=== PATIENT | male | born 1980 | race Two or more races ===

== ENCOUNTER 2024-10-21 17:11 | Emergency (ER) | payer MEDICAID, SELFPAY ==
[2024-10-21 17:14] VITALS: BMI 32.8
[2024-10-21 17:52] VITALS: BP 115/81; PULSE 68; RESP 16; TEMP 37.2; O2SAT 98
--- NOTE | 2024-10-21 17:54 | PD.EDRME ---
Rapid Medical Screening Exam [facility] Arrival date/time: 10/21/24 17:11 44-year-old male with a history of cannabinoid hyperemesis syndrome, presents to the emergency room with a chief complaint of nausea and vomiting x 1 week. Patient states every time he eats something he cannot hold it down. Patient is also complaining of heartburn. I have greeted and performed a focused initial assessment of this patient. A comprehensive ED assessment and evaluation of the patient, analysis of all test results, and completion of the medical decision making process will be conducted by additional ED providers. Chief Complaint: Nausea/Vomiting/Diarrhea Vital signs: Vital Signs Temperature 98.9 F 10/21/24 17:52 Pulse Rate 68 10/21/24 17:52 Respiratory Rate 16 10/21/24 17:52 Blood Pressure 115/81 10/21/24 17:52 Pulse Oximetry (%) 98 10/21/24 17:52 Oxygen Delivery Method Room Air 10/21/24 17:52 Vital signs reviewed by provider: Yes
[2024-10-21] MEDS: METOCLOPRAMIDE 5 MG TABLET 10 MG PO (18:22)
[2024-10-21] MEDS: MG HYD/AL HYD/SIME (Maalox Reg) SUSP 30 ML UDC PO (18:24)
[2024-10-21 18:39] LABS: Basophils % (Auto) 1 % (0-2.5); Eosinophils # (Auto) 0.1 Thou/mm3 (0.0-0.5); Eosinophils % (Auto) 1 % (0-10); Hematocrit 44.1 % (41.0-53.0); Hemoglobin 14.8 g/dL (13.5-16.0); Immature Granulocytes % (Auto) 0 % (0-0); Immature Granulocytes Auto 0.02 Thou/mm3 (0.00-0.00); Lymphocytes # (Auto) 1.6 Thou/mm3 (1.0-4.8); Lymphocytes % (Auto) 24 % (10-50); Mean Corpuscular HGB Conc 33.6 g/dl (31.0-37.0); Mean Corpuscular Hemoglobin 29.2 pg (25.0-35.0); Mean Corpuscular Volume 87 fL (80-100); Monocytes # (Auto) 0.6 Thou/mm3 (0.0-0.8); Monocytes % (Auto) 9 % (0-12); Neutrophils # (Auto) 4.3 Thou/mm3 (1.8-7.7); Neutrophils % (Auto) 65 % (37-80); Nucleated Red Blood Cell % 0 /100 WBC (0); Platelet Count 233 Thou/mm3 (140-440); RDW Standard Deviation 40.2 fL (35.1-43.9); Red Blood Count 5.07 Miln/mm3 (4.50-5.90); White Blood Count 6.6 Thou/mm3 (3.8-10.6)
[2024-10-21 18:58] LABS: Alanine Aminotransferase 36 U/L (10-49); Albumin, Serum 4.1 gm/dL (3.5-5.0); Albumin/Globulin Ratio 1.7 (1.2-2.2); Alkaline Phosphatase 60 U/L (46-116); Anion Gap 9 (7-16); Aspartate Amino Transferase 36 U/L (0-34); BUN/Creatinine Ratio 11 Ratio (12-20); Bilirubin,Total 1.6 mg/dL (0.3-1.2); Blood Urea Nitrogen 10 mg/dL (9-23); Calcium 9.6 mg/dL (8.3-10.6); Calcium (Corrected) 9.6 mg/dL (8.5-10.1); Carbon Dioxide 25.8 mMol/L (20.0-31.0); Chloride 109 mMol/L (98-107); Creatinine (Component) 0.9 mg/dL (0.6-1.3); Estimated Creatinine Clearance 108.7 mL/min (>60); Globulin 2.4 gm/dL (2.3-3.5); Glucose 98 mg/dL (74-106); Lipase 34 U/L (12-53); Osmolality,Calculated 285 (275-295); Potassium 4.3 mMol/L (3.4-5.1); Sodium 144 mMol/L (136-145); Total Protein 6.5 gm/dL (5.7-8.2); eGFR > 60 See Note
--- NOTE | 2024-10-21 22:16 | EDNOTE_ITS ---
Nausea/Vomit./Diarrhea-RME/HPI General Chief complaint: Nausea/Vomiting/Diarrhea Stated complaint: N/V X1 WEEK Time Seen by Provider: 10/21/24 21:53 Arrival date/time: 10/21/24 17:11 RME / HPI RME / HPI Narrative: 10/21/24 17:11 44-year-old male with a history of cannabinoid hyperemesis syndrome, presents to the emergency room with a chief complaint of nausea and vomiting x 1 week. Patient states every time he eats something he cannot hold it down. Patient is also complaining of heartburn. I have greeted and performed a focused initial assessment of this patient. A comprehensive ED assessment and evaluation of the patient, analysis of all test results, and completion of the medical decision making process will be conducted by additional ED providers. --------- This section includes all my notes and documentations, including HPI, PE, and ED course. Abhi Seay MD HPI: 44yo male with no significant past medical history presents to the ED for complaints of N/V x 5 days. Patient states he's had persistent N/V for the last 5 days, reporting I am very dehydrated and need IV fluids . He reports associated generalized body cramps when he coughs, diarrhea, and nonspecific abdominal pain. He denies any fever, chills or any other associated symptoms. Denies any previous abdominal surgeries. No other complaints reported. ROS: All negative except as documented in HPI. Physical Exam: General: Alert and oriented. No acute distress when remaining still. Eyes: Conjunctivae and lids clear. ENT: No nasal congestion. Neck: Supple. Heart: RRR. Lungs: No respiratory distress. Good air movement. No rhonchi, wheezing, rales. Abdomen: Soft and nontender. Legs: No clubbing, cyanosis, edema. Skin: Warm and dry. Neuro: Alert and oriented X 3. I reviewed all diagnostic test results. Blood tests and urine tests unremarkable. At this point, diagnoses include gastroenteritis. Treatment here from me included NS, Toradol, Zofran. Significant improvement noted. Recommended supportive care. Based on my best medical judgment, made decision no further evaluation or treatment indicated at this time. Patient understands and agrees to the discharge instructions customized and printed, see below. Discharge Instructions from Dr. Seay: 1. After evaluation, you have stomach flu. See attached handout on gastroenteritis. 2. This is caused by virus germs. And we do not have good medications to kill the virus germs. But your immune system will fight it off. 3. Your job is to stay hydrated. Zofran for nausea/vomiting. Increase oral fluid and maintain clear urine. If dark or yellow, increase oral fluid. 4. Do not take any medications to stop your diarrhea. But try to replenish the fluid and electrolytes you are losing. 5. Some good choices are water (but not only water because it will cause electrolyte abnormalities), sports drinks like Gatorade (with less sugar content), coconut water, chicken stock, and other fluid with electrolytes (like Pedialyte). 6. See your private doctor on if not completely better. 7. Seek immediate medical care with worsening or with any concerns. Abhi Seay MD Related Data Previous Rx's ?Medication ?Instructions ?Recorded metoclopramide HCl 10 mg tablet 10 mg PO Q6H PRN nause a and 03/03/22 (Reglan) vomiting #14 tabs pantoprazole 40 mg tablet,delayed 40 mg PO QDAY #30 ta bs 03/03/22 release (Protonix) ondansetron 4 mg disintegrating 4 mg PO Q8H PRN nausea and 03/08/22 tablet vomiting #14 tabs doxycycline monohydrate 100 mg 100 mg PO BID #14 caps 07/21/22 capsule metronidazole 500 mg tablet 500 mg PO BID #14 tabs 12/06 metoclopramide HCl 10 mg tablet 10 mg PO Q6H PRN nause a and 04/30/24 (Reglan) vomiting #14 tabs ondansetron 4 mg disintegrating 4 mg PO Q8H PRN nausea and 05/01/24 tablet vomiting #10 tabs ondansetron 4 mg disintegrating 4 mg PO TID PRN nausea and 10/21/24 tablet vomiting 30 days #10 tabs Allergies Allergy/AdvReac Type Severity Reaction Status Date / Time No Known Allergies Allergy Verified 10/21/24 17:12 Review of Systems Review of Systems Systems Reviewed: All systems reviewed, normal except as documented Past Medical History Past Medical History CARDIAC: Negative Cardiac Disorders or Congestive Heart Failure RESPIRATORY: Negative Chronic Obstructive Pulmonary Disease (COPD) or Asthma GASTROINTESTINAL: Positive Gastrointestinal Bleed GENITOURINARY: Negative Renal Disease ENDOCRINE: Negative Diabetes Mellitus Type 1 or Diabetes Mellitus Type 2 HEMATOLOGIC: Negative Sickle Cell Disease Social History SMOKING STATUS: Current every day smoker SUBSTANCE USE: marijuana ED Exam Narrative Physical exam: As noted in HPI. Course Quality Measures none Orders Category Date Time Status CBC Stat Lab 10/21/24 18:11 Completed CMP [Comprehensive Metabolic Panel] Stat Lab 10/21/24 18:11 Completed Drug Screen,Urine Stat Lab 10/21/24 17:53 Ordered Lipase Stat Lab 10/21/24 18:11 Completed UA, C/S IF [Urinalysis, C/S if Indicated] Stat Lab 10/21/24 17:53 Ordered Ketorolac Inj [Toradol Inj] Med 10/21/24 22:14 Discontinued 30 mg IVP X1 ONE Metoclopramide [Reglan] Med 10/21/24 17:53 Discontinued 10 mg PO X1 ONE Ondansetron Inj [Zofran Inj] Med 10/21/24 22:15 Discontinued 4 mg IV X1 ONE Sodium Chloride 0.9% 1000 ml [Ns] 1,000 ml Med 10/21/24 22:13 Active IV 999 mls/hr mg Hyd/Al Hyd/Wale Susp [Maalox Susp] Med 10/21/24 17:53 Discontinued 30 ml PO X1 ONE Vital Signs Vital signs: Vital Signs Temperature 98.9 F 10/21/24 17:52 Pulse Rate 68 10/21/24 17:52 Respiratory Rate 16 10/21/24 17:52 Blood Pressure 115/81 10/21/24 17:52 Pulse Oximetry (%) 98 10/21/24 17:52 Oxygen Delivery Method Room Air 10/21/24 17:52 Nausea/Vomiting/Diarrhea MDM Narrative [facility] Narrative:: Scribe Attestation: 10/21/24 Brittanie Lopez am scribing for and in the presence of Dr. Seay. Patient data External records reviewed:: [facility] previous records (Per chart review, patient was seen here on 05/01/24 for N/V.) Clinical information provided by:: patient Social determinants that could affect healthcare access:: substance use (history of marijuana use) Patient has the following chronic illnesses:: none How is presenting disease/condition affected by chronic disease/condition?: no chronic disease Evaluation data The following diagnostics were reviewed and interpreted by me:: lab results Lab and/or radiology exams considered but not ordered:: none Interpretation Summary: Gastroenteritis Medications / Prescriptions Medications / Prescriptions considered but not ordered:: none Medication administrations:: Medication Administration History Sodium Chloride (Ns) 1,000 mls @ 999 mls/hr IV .Q1H1M ONE Stop: 10/21/24 23:13 Last Admin: 10/21/24 22:23 Dose: 999 mls/hr Documented By: JOSE Discontinued Medications Al Hydrox/Mg Hydrox/Simethicone (Mg Hyd/Al Hyd/Wale (Maalox Reg) Susp 30 Ml Udc) 30 ml PO X1 ONE Stop: 10/21/24 17:54 Last Admin: 10/21/24 18:24 Dose: 30 ml Documented By: JOSE Ketorolac Tromethamine (Ketorolac Inj 30 Mg/Ml Vial) 30 mg IVP X1 ONE Stop: 10/21/24 22:15 Last Admin: 10/21/24 22:35 Dose: 30 mg Documented By: KIP Metoclopramide HCl (Metoclopramide 5 Mg Tablet) 10 mg PO X1 ONE Stop: 10/21/24 17:54 Last Admin: 10/21/24 18:22 Dose: 10 mg Documented By: JOSE Ondansetron HCl (Ondansetron Inj 2 Mg/Ml Inj 2 Ml) 4 mg IV X1 ONE; Protocol Stop: 10/21/24 22:16 Last Admin: 10/21/24 22:35 Dose: 4 mg Documented By: KIP NS, Toradol, Zofran from dc. Consultations Consultation(s) initiated? (list below): No Diagnosis Nausea Differential Diagnosis: traveler's diarrhea, food poisoning, gastroenteritis, clostridium difficile infection, drug-induced nausea and vomiting and dehydration Most likely diagnosis given after review of the tests above:: Gastroenteritis Admission Indicated Admission indicated?: not indicated Explain why admission is indicated or not indicated:: With significant improvement, there was no indication for admission. Admission Request Was there a request for admission?: No Disposition Plan Disposition Plan: Discharge Discharge Attestation Discharge Attestation: The patient and all family members were given an opportunity to ask questions and understood the discharge instructions. Discharge instructions specifically effects, indications for sooner follow up or return to the emergency department, and the expected course of current diagnosis. Patient condition: Stable Discharge Plan Plan Patient Disposition: HOME (Self Care) Prescriptions/Referrals Prescriptions/Med Rec: New ondansetron 4 mg tablet,disintegrating 4 mg PO TID PRN (Reason: nausea and vomiting) 30 Days Qty: 10 0RF No Action pantoprazole [Protonix] 40 mg tablet,delayed release (DR/EC) 40 mg PO QDAY Qty: 30 0RF metoclopramide HCl [Reglan] 10 mg tablet 10 mg PO Q6H PRN (Reason: nausea and vomiting) Qty: 14 0RF ondansetron 4 mg tablet,disintegrating 4 mg PO Q8H PRN (Reason: nausea and vomiting) Qty: 14 0RF doxycycline monohydrate 100 mg capsule 100 mg PO BID Qty: 14 0RF metronidazole 500 mg tablet 500 mg PO BID Qty: 14 0RF ondansetron 4 mg tablet,disintegrating 4 mg PO Q8H PRN (Reason: nausea and vomiting) Qty: 10 0RF metoclopramide HCl [Reglan] 10 mg tablet 10 mg PO Q6H PRN (Reason: nausea and vomiting) Qty: 14 0RF Referrals: No Primary/Family,Physician [Primary Care Provider] - In 1 week Problem List Clinical Impression: Gastroenteritis Patient/Caregiver Discharge Instructions Discharge Activity: activity as tolerated Education Materials: ED Gastroenteritis, Viral (Adult) Additional Instructions: Discharge Instructions from Dr. Seay: 1. After evaluation, you have stomach flu.? See attached handout on gastroenteritis. 2. This is caused by virus germs.? And we do not have good medications to kill the virus germs.? But your immune system will fight it off. 3. Your job is to stay hydrated.? Zofran for nausea/vomiting.? Increase oral fluid and maintain clear urine.? If dark or yellow, increase oral fluid. 4. Do not take any medications to stop your diarrhea.? But try to replenish the fluid and electrolytes you are losing. 5. Some good choices are water (but not only water because it will cause electrolyte abnormalities), sports drinks like Gatorade (with less sugar content), coconut water, chicken stock, and other fluid with electrolytes (like Pedialyte). 6. See your private doctor on if not completely better. 7. Seek immediate medical care with worsening or with any concerns. Print Language: Guatemalan Stand Alone Forms: Kathy Award Info., Work/School Release, Patient Portal Info Letter
[2024-10-21] MEDS: SODIUM CHLORIDE 0.9% 1000 ML 1,000 ML 999 ML IV (22:23)
[2024-10-21] MEDS: KETOROLAC INJ 30 MG/ML VIAL IVP (22:35)
[2024-10-21] MEDS: ONDANSETRON INJ 2 MG/ML INJ 2 ML 4 MG IV (22:35)
[2024-10-21] MEDS: ONDANSETRON ODT 4 MG TABRAP PO (23:29)
[2024-10-21] MEDS: METOCLOPRAMIDE LIQD 10 MG/10 ML UDC PO (23:29)
[2024-10-22 00:15] VITALS: BP 159/104; PULSE 60; RESP 18; TEMP 36.8; O2SAT 99
== END 2024-10-22 00:24 | disposition home or self-care (01) ==
PROVIDERS: Nurse Practitioner Family; Emergency Provider Emergency Medicine
DX: K52.9 Noninfective gastroenteritis and colitis, unspecified (principal); R12 Heartburn
CPT/HCPCS: 36415; 80053; 80307; 81001; 83690; 85025; 99284; J1885; J2405; J7030; Q0162; A9270

== ENCOUNTER 2024-10-22 00:48 | Emergency (ER) | payer MEDICAID, SELFPAY ==
[2024-10-22 00:50] VITALS: PULSE 89; RESP 19; O2SAT 99
[2024-10-22 00:52] VITALS: BMI 23.1
--- NOTE | 2024-10-22 02:23 | PC.NURSE ---
STAFF CALLED PATIENT IN THE LOBBY AND OUTSIDE NO ANSWER RECEIVED.
--- NOTE | 2024-10-22 03:03 | PC.LAC ---
CALLED PATIENT IN THE LOBBY AND OUTSIDE, NO ANSWER RECEIVED.
--- NOTE | 2024-10-22 03:07 | PC.NURSE ---
STAFF CALLED PATIENT IN THE LOBBY AND OUTSIDE, NO ANSWER RECEIVED.
--- NOTE | 2024-10-22 03:13 | PD.EDADDENDU ---
Emergency Room Addendum Addendum Narrative: When I looked for the patient to start my evaluation, I was told the patient eloped. Abhi Seay MD
--- NOTE | 2024-10-22 03:30 | PC.NURSE ---
CALLED PATIENT IN THE LOBBY AND OUTSIDE, NO ANSWER RECIEVED.
== END 2024-10-22 03:59 | disposition left against medical advice (07) ==
LOC: SERX 04:05
PROVIDERS: Emergency Provider Emergency Medicine
DX: Z53.21 Procedure and treatment not carried out due to patient leaving prior to being seen by health care provider (principal)

== ENCOUNTER 2024-10-23 10:50 | Observation (INO) | payer MEDICAID, SELFPAY ==
[2024-10-23] VITALS (11 sets, daily range): BP systolic 118–165; BP diastolic 69–104; PULSE 42–76; RESP 16–97; TEMP 36.8–37.4; O2SAT 95–98; BMI 29.8
--- NOTE | 2024-10-23 11:11 | PC.NURSE ---
Patient to er via ems with c/o abd. pain, n/vomiting dark emesis and abd. pain with diarrhea x days, patient came from [facility] clinic in [place], currently patient states he feels very weak h/o anemia and GI bleeding, skin warm dry and pink, HR SB on the CM, chart up to be seen be er provider, will await orders.
[2024-10-23 11:45] LABS: Basophils % (Auto) 0 % (0-2.5); Eosinophils % (Auto) 0 % (0-10); Hematocrit 42.4 % (41.0-53.0); Immature Granulocytes % (Auto) 0 % (0-0); Immature Granulocytes Auto 0.03 Thou/mm3 (0.00-0.00); Lymphocytes # (Auto) 1.4 Thou/mm3 (1.0-4.8); Lymphocytes % (Auto) 12 % (10-50); Mean Corpuscular HGB Conc 35.4 g/dl (31.0-37.0); Mean Corpuscular Hemoglobin 29.5 pg (25.0-35.0); Mean Corpuscular Volume 84 fL (80-100); Monocytes # (Auto) 1.2 Thou/mm3 (0.0-0.8); Monocytes % (Auto) 10 % (0-12); Neutrophils % (Auto) 77 % (37-80); Nucleated Red Blood Cell % 0 /100 WBC (0); Platelet Count 288 Thou/mm3 (140-440); RDW Standard Deviation 38.4 fL (35.1-43.9); Red Blood Count 5.08 Miln/mm3 (4.50-5.90); White Blood Count 11.6 Thou/mm3 (3.8-10.6)
--- NOTE | 2024-10-23 11:59 | PD.EDNV ---
Nausea/Vomit./Diarrhea-RME/HPI General Chief complaint: Nausea/Vomiting/Diarrhea Stated complaint: NAUSEA AND VOMITING Time Seen by Provider: 10/23/24 11:11 Arrival date/time: 10/23/24 10:50 RME / HPI RME / HPI Narrative: DR. MURO MAIN ED EVALUATION: 44 year old male presents to the Emergency Department [facility] with complaints of nausea and vomiting onset 5 days. He states has been unable to keep anything down. Associated symptoms include generalized weakness and epigastric pain. States he has history of ulcer and is concerned for GI bleeding. One episode of loose stools. States he was previously admitted with similar symptoms. Related Data Previous Rx's ?Medication ?Instructions ?Recorded fluconazole 200 mg tablet 200 mg PO QDAY Esophageal 10/25/24 Candidiasis 21 days #21 tabs ondansetron HCl 4 mg tablet 4 mg PO Q8H PRN nausea and 10/25/24 vomiting 10 days #90 tabs pantoprazole 40 mg tablet,delayed 40 mg PO BID 30 days #60 tabs 10/25/24 release (Protonix) Allergies Allergy/AdvReac Type Severity Reaction Status Date / Time cayenne Allergy Verified 10/25/24 13:18 paprika Allergy Verified 10/25/24 13:18 Review of Systems Review of Systems Systems Reviewed: All systems reviewed, normal except as documented Past Medical History Past Medical History GASTROINTESTINAL: Positive Gastrointestinal Bleed HEMATOLOGIC: Positive Anemia Social History SMOKING STATUS: Current every day smoker SUBSTANCE USE: marijuana ALCOHOL: Never ED Exam Narrative Physical exam: GENERAL APPEARANCE: alert and oriented x 4, well-developed, well-nourished, no acute distress VITALS: All vitals were reviewed and the pulse ox is 97% on room air, which is normal according to my interpretation. HEENT: Normocephalic, atraumatic; pupils equal, round, reactive to light; EOMI; mucous membranes pink, dry; oropharynx clear NECK: Supple LUNGS: CTABL; no wheezes, no rales, no rhonchi HEART: Regular rate, regular rhythm; normal S1, S2; no murmurs ABDOMEN: non distended; normal BS; soft, no tenderness, no guarding, no rebound; no masses, no organomegaly, no hernia BACK: no CVA tenderness EXTREMITIES: atraumatic; no edema NEUROLOGIC: awake; alert and oriented x4; cranial nerves II-XII grossly intact; no focal sensory or motor deficits PSYCHIATRIC: appropriate mood and affect SKIN: warm, dry, normal color; no rashes Course Quality Measures none Orders Category Date Time Status Admit to Inpatient Status Routine Admission 10/23/24 16:29 Active Patient Condition Routine Admission 10/23/24 16:29 Ordered Activity as Tolerated Routine Care 10/23/24 16:30 Ordered Teleradiologist Q4H START 00 Care 10/23/24 11:13 Completed Notify provider NEEDED Care 10/23/24 16:29 Completed Sequential Compression Device QSHIFT Care 10/23/24 16:34 Completed Consult to Gastroenterology Stat Cons 10/23/24 16:39 Ordered CBC AM DRAW Lab 10/24/24 04:00 Completed CBC AM DRAW Lab 10/25/24 05:18 Completed CBC Stat Lab 10/23/24 11:15 Completed Comprehensive Metabolic Panel AM DRAW Lab 10/24/24 04:00 Completed Comprehensive Metabolic Panel AM DRAW Lab 10/25/24 05:18 Completed Comprehensive Metabolic Panel Stat Lab 10/23/24 11:15 Completed Drug Screen,Urine Stat Lab 10/23/24 13:42 Completed Lipase Stat Lab 10/23/24 11:15 Completed Magnesium AM DRAW Lab 10/24/24 04:00 Completed Magnesium Stat Lab 10/23/24 11:15 Completed Phosphorous AM DRAW Lab 10/24/24 04:00 Completed UA, C/S IF [Urinalysis, C/S if Indicated] Stat Lab 10/23/24 13:42 Completed Acetaminophen Supp [Tylenol Supp] Med 10/23/24 16:29 Discontinued 650 mg AL Q6HR PRN DiphenhydrAMINE INJ [Benadryl Inj] Med 10/23/24 16:34 Discontinued 25 mg IV Q4HR PRN Haloperidol Lactate [Haldol Inj] Med 10/23/24 15:10 Discontinued 5 mg IM X1 ONE Morphine Inj Med 10/23/24 16:42 Discontinued 1 mg IVP Q6HR PRN Ondansetron Inj [Zofran Inj] Med 10/23/24 15:17 Discontinued 4 mg IV X1 ONE Ondansetron Odt [Zofran Odt] Med 10/23/24 14:57 Discontinued 4 mg PO X1 ONE Pantoprazole Inj [Protonix Inj] Med 10/23/24 21:00 Discontinued 40 mg IVP BID Pantoprazole Inj [Protonix Inj] Med 10/23/24 15:17 Discontinued 40 mg IVP X1 ONE Sodium Chloride 0.9% 1000 ml [Ns] 1,000 ml Med 10/23/24 16:30 Discontinued IV 75 mls/hr Sodium Chloride 0.9% 1000 ml [Ns] 1,000 ml Med 10/23/24 15:17 Discontinued IV 999 mls/hr mg Hyd/Al Hyd/Wale Susp [Maalox Susp] Med 10/23/24 16:41 Discontinued 30 ml PO X1 PRN Code Status Routine Oth 10/23/24 16:29 Completed Oxygen Delivery PRN RT 10/23/24 16:29 Completed Reevaluation(s) Reevaluation #1: Patient is still vomiting will order medications. Time: 15:14 Vital Signs Vital signs: Vital Signs Temperature 99.3 F 10/23/24 10:59 Pulse Rate 44 L 10/23/24 10:59 Respiratory Rate 16 10/23/24 10:59 Blood Pressure 156/96 H 10/23/24 10:59 Pulse Oximetry (%) 98 10/23/24 10:59 Oxygen Delivery Method Room Air 10/23/24 10:59 Nausea/Vomiting/Diarrhea MDM Narrative MDM Narrative:: IYue am scribing for and in the presence of Dr. Muro. Patient data External records reviewed:: EMS form Clinical information provided by:: patient and EMS Social determinants that could affect healthcare access:: none Patient has the following chronic illnesses:: Ulcers, anemia. How is presenting disease/condition affected by chronic disease/condition?: exacerbated by Evaluation data The following diagnostics were reviewed and interpreted by me:: lab results Lab and/or radiology exams considered but not ordered:: none Interpretation Summary: Polysubstance abuse history, today tested positive for marijuana. Medications / Prescriptions Medications / Prescriptions considered but not ordered:: none Medication administrations:: Medication Administration History Discontinued Medications Acetaminophen (Acetaminophen Supp 650 Mg Supp) 650 mg AL Q6HR PRN; Protocol PRN Reason: Fever > 100.3 or pain Stop: 11/22/24 16:28 Al Hydrox/Mg Hydrox/Simethicone (Mg Hyd/Al Hyd/Wale (Maalox Reg) Susp 30 Ml Udc) 30 ml PO X1 PRN; Protocol PRN Reason: stomach pain Stop: 11/22/24 16:40 Benzocaine (Benzocaine 20% (Hurricaine) Jenner 1 Dose) Confirm Administered Dose 1 dose TOP .STK-MED ONE Stop: 10/24/24 18:14 Capsaicin (Capsaicin Cr 60 Gm Tube) 0 gm TOP TID [facility] Stop: 11/22/24 21:59 Last Admin: 10/24/24 05:37 Dose: Not Given Documented By: VITALIY Non-Admin Reason: Other, see note Comments: Medication not available, MD Aware. Admin: 10/23/24 21:21 Dose: Not Given Documented By: VITALIY Non-Admin Reason: Other, see note Comments: Medication not available, MD aware. Diphenhydramine HCl (Diphenhydramine Inj 50 Mg/Ml Vial) 25 mg IV Q4HR PRN PRN Reason: NAUSEA OR VOMITING Stop: 11/22/24 16:33 Diphenhydramine HCl (Diphenhydramine Inj 50 Mg/Ml Vial) Confirm Administered Dose 50 mg .ROUTE .STK-MED ONE Stop: 10/24/24 18:15 Diphenhydramine HCl (Diphenhydramine Inj 50 Mg/Ml Vial) 25 mg IV PRNMRX1 PRN PRN Reason: MODERATE SEDATION Stop: 10/24/24 20:14 Fentanyl Citrate (Fentanyl Cit Inj 50 Mcg/Ml Amp 2ml) Confirm Administered Dose 100 mcg .ROUTE .STK-MED ONE Stop: 10/24/24 18:14 Fentanyl Citrate (Fentanyl Cit Inj 50 Mcg/Ml Amp 2ml) 50 mcg IV Q2M PRN PRN Reason: MODERATE SEDATION Stop: 10/24/24 20:14 Haloperidol Lactate (Haloperidol Lact Inj 5 Mg/Ml Vial) 5 mg IM X1 ONE Stop: 10/23/24 15:11 Last Admin: 10/23/24 15:51 Dose: 5 mg Documented By: ERIKA Sodium Chloride (Ns) 1,000 mls @ 999 mls/hr IV .Q1H1M ONE Stop: 10/23/24 16:17 Last Infusion: 10/23/24 16:50 Dose: Infused Documented By: Admin: 10/23/24 15:48 Dose: 999 mls/hr Documented By: ERIKA Sodium Chloride (Ns) 1,000 mls @ 75 mls/hr IV .[id number] [facility] Stop: 11/22/24 16:29 Last Admin: 10/25/24 11:03 Dose: 75 mls/hr Documented By: Infusion: 10/25/24 09:22 Dose: Infused Documented By: Admin: 10/24/24 20:02 Dose: 75 mls/hr Documented By: Infusion: 10/24/24 18:10 Dose: Infused Documented By: Admin: 10/24/24 04:50 Dose: 75 mls/hr Documented By: Infusion: 10/24/24 04:50 Dose: Infused Documented By: Admin: 10/23/24 17:23 Dose: 75 mls/hr Documented By: ERIKA Fluconazole (Diflucan/Ns Ivpb) 400 mg in 200 mls @ 100 mls/hr IV QDAY@2100 [facility] Stop: 10/31/24 18:35 Last Admin: 10/24/24 20:03 Dose: 100 mls/hr Documented By: VITALIY Meperidine HCl (Meperidine Inj 50 Mg/Ml Vial) Confirm Administered Dose 50 mg .ROUTE .STK-MED ONE Stop: 10/24/24 18:14 Meperidine HCl (Meperidine Inj 50 Mg/Ml Vial) 50 mg IV Q2M PRN PRN Reason: Moderate Sedation Stop: 10/24/24 20:14 Midazolam HCl (Midazolam Inj 1 Mg/Ml Vial 2 Ml) Confirm Administered Dose 6 mg .ROUTE .STK-MED ONE Stop: 10/24/24 18:15 Midazolam HCl (Midazolam Inj 1 Mg/Ml Vial 2 Ml) 2 mg IV Q2M PRN PRN Reason: Moderate Sedation Stop: 10/24/24 20:14 Morphine Sulfate (Morphine Sulf Inj 10 Mg/Ml Vial) 1 mg IVP Q6HR PRN PRN Reason: abdominal pain 4-6 Nystatin (Nystatin Susp 5 Ml Udc) 5 ml PO TID [facility] Stop: 10/31/24 21:59 Last Admin: 10/25/24 13:22 Dose: 5 ml Documented By: Admin: 10/25/24 05:06 Dose: 5 ml Documented By: Admin: 10/24/24 21:06 Dose: 5 ml Documented By: VITALIY Ondansetron HCl (Ondansetron Odt 4 Mg Tabrap) 4 mg PO X1 ONE; Protocol Stop: 10/23/24 14:58 Last Admin: 10/23/24 15:50 Dose: 4 mg Documented By: ERIKA Ondansetron HCl (Ondansetron Inj 2 Mg/Ml Inj 2 Ml) 4 mg IV X1 ONE; Protocol Stop: 10/23/24 15:18 Last Admin: 10/23/24 15:52 Dose: 4 mg Documented By: ERIKA Ondansetron HCl (Ondansetron Inj 2 Mg/Ml Inj 2 Ml) 4 mg IV Q6HR PRN; Protocol PRN Reason: NAUSEA OR VOMITING Stop: 11/22/24 20:18 Last Admin: 10/25/24 08:06 Dose: 4 mg Documented By: Admin: 10/24/24 04:48 Dose: 4 mg Documented By: Admin: 10/23/24 20:36 Dose: 4 mg Documented By: VITALIY Pantoprazole Sodium (Pantoprazole Inj 40 Mg Vial) 40 mg IVP X1 ONE Stop: 10/23/24 15:18 Last Admin: 10/23/24 15:52 Dose: 40 mg Documented By: ERIKA Pantoprazole Sodium (Pantoprazole Inj 40 Mg Vial) 40 mg IVP BID [place] Stop: 11/22/24 20:59 Last Admin: 10/25/24 08:06 Dose: 40 mg Documented By: Admin: 10/24/24 21:06 Dose: 40 mg Documented By: Admin: 10/24/24 09:15 Dose: 40 mg Documented By: Admin: 10/23/24 20:36 Dose: 40 mg Documented By: VITALIY see above if any Consultations Consultation(s) initiated? (list below): Yes Consultation #1 (Physician, Specialty, Details): Discussed test HPI, PMHx, lab, radiology results and/or management with hospitalist Dr. Jones. Will admit for further evaluation and management. Accepts patient for admission. Time: 16:20 Diagnosis Nausea Differential Diagnosis: drug-induced nausea and vomiting, dehydration and other (cannabinoid hyperemesis syndrome (CHS)) Most likely diagnosis given after review of the tests above:: GI bleed Cannabinoid hyperemesis syndrome Marijuana abuse Admission Indicated Admission indicated?: indicated Admission Request Was there a request for admission?: Yes Admission Attestation Admission request attestation: Discussed case with [] from Hospitalist service regarding admission. Discussed patients ED course, exam findings, labs, and radiology results. The Hospitalist [agrees,declines] to accept the patient for admission. Disposition Plan Disposition Plan: Admit Discharge Plan Plan Patient Disposition: Admit Acute Care w/in Hospital Patient condition on transfer: Stable Problem List Clinical Impression: GI bleed, Cannabinoid hyperemesis syndrome, Marijuana abuse
[2024-10-23 12:12] LABS: Alanine Aminotransferase 28 U/L (10-49); Albumin, Serum 4.2 gm/dL (3.5-5.0); Albumin/Globulin Ratio 1.8 (1.2-2.2); Alkaline Phosphatase 60 U/L (46-116); Anion Gap 11 (7-16); Aspartate Amino Transferase 23 U/L (0-34); BUN/Creatinine Ratio 14 Ratio (12-20); Bilirubin,Total 1.5 mg/dL (0.3-1.2); Blood Urea Nitrogen 11 mg/dL (9-23); Calcium 9.3 mg/dL (8.3-10.6); Calcium (Corrected) 9.3 mg/dL (8.5-10.1); Chloride 107 mMol/L (98-107); Creatinine (Component) 0.8 mg/dL (0.6-1.3); Globulin 2.3 gm/dL (2.3-3.5); Glucose 121 mg/dL (74-106); Lipase 42 U/L (12-53); Osmolality,Calculated 283 (275-295); Potassium 3.4 mMol/L (3.4-5.1); Sodium 142 mMol/L (136-145); Total Protein 6.5 gm/dL (5.7-8.2); eGFR > 60 See Note
[2024-10-23 13:51] LABS: Collection Type, Urine Clean Catch; Squamous Epithelial Cell,Urine 0 /hpf (0-5)
[2024-10-23 14:14] LABS: Amphetamine/Methamp Scrn,U Negative (Negative); Barbiturate Screen,Urine Negative (Negative); Benzodiazepines Screen,Urine Negative (Negative); Benzoylecgonine Screen, Ur Negative (Negative); Fentanyl Screen,Urine Negative (Negative); Opiate Screen,Urine Negative (Negative); THC Screen,Urine Positive (Negative)
[2024-10-23 14:26] LABS: Amorphous Crystals,Urine Present (Absent); Bacteria,Urine Rare; Bilirubin,Urine Negative (Negative); Blood,Urine Negative (Negative); Budding Yeast,Urine Present; Color,Urine Yellow (Lt Yel-Yel); Culture Indicated,Urine Not Indicated; Glucose, Urine Negative (Negative); Ketones,Urine 3+ (Negative); Leukocyte Esterase,Urine Negative (Negative); Nitrite,Urine Negative (Negative); Protein,Urine Trace (Neg - Trace); RBC,Urine 6 /hpf (0-3); Urobilinogen,Urine Negative mg/dL (0.0-1.0); WBC,Urine 1 /hpf (0-5)
[2024-10-23 14:28] LABS: Clarity,Urine Cloudy (Clear/Hazy)
[2024-10-23] MEDS: SODIUM CHLORIDE 0.9% 1000 ML 1,000 ML 999 ML IV (15:48)
[2024-10-23] MEDS: ONDANSETRON ODT 4 MG TABRAP PO (15:50)
[2024-10-23] MEDS: HALOPERIDOL LACT INJ 5 MG/ML VIAL IM (15:51)
[2024-10-23] MEDS: ONDANSETRON INJ 2 MG/ML INJ 2 ML 4 MG IV ×2 (15:52→20:36)
[2024-10-23] MEDS: PANTOPRAZOLE INJ 40 MG VIAL IVP ×2 (15:52→20:36)
--- NOTE | 2024-10-23 15:58 | PC.NURSE ---
patient c/o that provider not listening and we are not helping him,informed patient provider ordered medicaton to help with his symptoms, however patient states i need to be admitted, I already know it's not gonna work encouraged patientto take medication ordered by provider to get relief of symptoms, Patient agrees to medication administration, however, during administration patient continues to say i already know it's not gonna work informed patient he can refuse if he would like, patient states no go ahead also informed patient that I will notify provider and he could speak with her, patient states i don't want to talk to that stupid drValeria Muro made aware and states she called the hospitalists to come to er to evalutate pt.
--- NOTE | 2024-10-23 16:05 | PC.NURSE ---
Patient standing at bedside, asking for water yelling out the drValeria is so unprofessional patient encouraged to lie back onto the [facility], do to medicaiton administration, informed patient I will ask provider if patient can have water.
--- NOTE | 2024-10-23 16:14 | PC.LAC ---
Hospitalist at bedside.
--- NOTE | 2024-10-23 16:45 | PD.RESHP ---
Documentation for date of: 10/23/24 [facility] History of Present Illness Chief complaint: nausea and vomiting History of present illness: Luther Diallo is 44 yr male with PMH of THC use, cannabinoid hyperemesis syndrome, gastric ulcers (?) who presented to the ED due to abdominal pain, nausea, decreased appetite, vomiting since past one week. He had previously presented to the ED on 10/21 with similar symptoms. Patient has been experiencing abdominal pain 8/ with nothing improving the pain. Stated that he has a very sensitive stomach and ate a jalapeno which started exacerbation of the symptoms. Endorses decreased appetite, weakness, shortness of breath while talking. He denies any recent NSAID use. No diarrhea, no blood in the stool. Patient has had 4?5 episodes of emesis in the past few days with some blood. He has never undergone any GI workup. In ED vitals stable, labs unremarkable. UA positive for ketones. Tox positive for THC. GI Dr. Claros was consulted. Patient admitted for management of cyclical vomiting episodes and workup of possible GI bleed. PMH: as noted above PSH: none FamHx: mother has diabetes, gastric ulcers Social: smokes <10 cig/day, drinks alcohol occasionally, denies illicit drug use, smokes marijuana regularly. Meds: Patient denies taking any medications outpatient Allergies: NKDA Review of Systems Review of Systems Systems Reviewed: All systems reviewed, normal except as documented Exam Vital Signs Temp Pulse Resp BP Pulse Ox O2 Del Method 98.3 F 57 L 19 138/75 H 97 Room Air 10/23/24 15:53 10/23/24 15:53 10/23/24 15:53 10/23/24 15:53 10/23/24 15:53 10/23/24 15:53 Narrative Exam General: Middle-aged male alert and oriented x3. In distress, cooperative HEENT: NCAT, No JVD noted. Mucosa moist. Pupils are equal and reactive to light bilaterally Cardiovascular: Normal S1 and S2. Regular rate and rhythm. Respiratory: Lungs are clear to auscultation bilaterally. No wheezing or crackles heard. Abdomen: Soft, some tenderness to palpation, not distended, normal bowel sounds. Skin: Warm to touch, dry, no rashes noted Musculoskeletal: No gross injuries. Able to move all 4 extremities. No pitting edema Neuro: Alert and oriented x3. No focal neuro deficits. Psych: Normal affect and mood Results: Labs 10/24/24 04:00 10/24/24 04:00 Labs: Short CBC 10/23/24 Range/Units 11:15 WBC 11.6 H D (3.8-10.6) Thou/mm3 Hgb 15.0 (13.5-16.0) g/dL Hct 42.4 (41.0-53.0) % Plt Count 288 D (140-440) Thou/mm3 BMP 10/23/24 11:15 Sodium 142 Potassium 3.4 D Chloride 107 Carbon Dioxide 24.0 BUN 11 Creatinine 0.8 Glucose 121 H Calcium 9.3 Liver Function 10/23/24 Range/Units 11:15 Total Bilirubin 1.5 H (0.3-1.2) mg/dL AST 23 (0-34) U/L ALT 28 (10-49) U/L Alkaline Phosphatase 60 (46-116) U/L Albumin 4.2 (3.5-5.0) gm/dL Urine 10/23/24 Range/Units 13:42 Urine Color Yellow (Lt Yel-Yel) Urine Clarity Cloudy A (Clear/Hazy) Urine pH 7.0 (5.0-7.0) Ur Specific [place] 1.020 (1.001-1.035) Urine Protein Trace (Neg - Trace) Urine Glucose (UA) Negative (Negative) Quality Measures Quality Measures none Medications Home Medications and Allergies Allergies Allergy/AdvReac Type Severity Reaction Status Date / Time No Known Allergies Allergy Verified 10/22/24 00:53 Visit Medications Acetaminophen (Acetaminophen Supp 650 Mg Supp) 650 mg [place] Q6HR PRN PRN Reason: Fever > 100.3 or pain Stop: 11/22/24 16:28 Al Hydrox/Mg Hydrox/Simethicone (Mg Hyd/Al Hyd/Wale (Maalox Reg) Susp 30 Ml Udc) 30 ml PO X1 PRN PRN Reason: stomach pain Stop: 11/22/24 16:40 Diphenhydramine HCl (Diphenhydramine Inj 50 Mg/Ml Vial) 25 mg IV Q4HR PRN PRN Reason: NAUSEA OR VOMITING Stop: 11/22/24 16:33 Sodium Chloride (Ns) 1,000 mls @ 75 mls/hr IV .[id number] [place] Stop: 11/22/24 16:29 Morphine Sulfate (Morphine Sulf Inj 10 Mg/Ml Vial) 1 mg IVP Q6HR PRN PRN Reason: abdominal pain Pantoprazole Sodium (Pantoprazole Inj 40 Mg Vial) 40 mg IVP BID [facility] Stop: 11/22/24 20:59 Discontinued Medications Haloperidol Lactate (Haloperidol Lact Inj 5 Mg/Ml Vial) 5 mg IM X1 ONE Stop: 10/23/24 15:11 Last Admin: 10/23/24 15:51 Dose: 5 mg Sodium Chloride (Ns) 1,000 mls @ 999 mls/hr IV .Q1H1M ONE Stop: 10/23/24 16:17 Last Admin: 10/23/24 15:48 Dose: 999 mls/hr Ondansetron HCl (Ondansetron Odt 4 Mg Tabrap) 4 mg PO X1 ONE; Protocol Stop: 10/23/24 14:58 Last Admin: 10/23/24 15:50 Dose: 4 mg Ondansetron HCl (Ondansetron Inj 2 Mg/Ml Inj 2 Ml) 4 mg IV X1 ONE; Protocol Stop: 10/23/24 15:18 Last Admin: 10/23/24 15:52 Dose: 4 mg Pantoprazole Sodium (Pantoprazole Inj 40 Mg Vial) 40 mg IVP X1 ONE Stop: 10/23/24 15:18 Last Admin: 10/23/24 15:52 Dose: 40 mg Assessment & Plan Plan Luther Diallo is 44 yr male with PMH of THC use, cannabinoid hyperemesis syndrome, gastric ulcers (?) who presented to the ED due to abdominal pain, nausea, decreased appetite, vomiting since past one week. Patient has had 4?5 episodes of emesis in the past few days with some blood. He has never undergone any GI workup. GI Dr. Claros was consulted. Patient admitted for management of cyclical vomiting episodes and workup of possible GI bleed. # Workup upper GI bleed #Cyclical vomiting #Cannabinoid hyperemesis syndrome #Hx marijuana use Patient endorses nausea and vomiting since past week. Vomit is dark in color. Possible esophageal tear from vomiting vs gastric ulcer bleeding. ?GI Dr. Claros consulted ? Clear liquid diet ?Diphenhydramine 25 mg IV q4hr PRN nausea ?Maalox for pain ? Morphine 1 mg IV q6hr PRN for pain ?Zofran 4 mg IV ?Pantoprazole 40 mg BID ?Maintenance fluids NS ?Avoid NSAIDs Health maintenance: Dispo: med surg, GI consult Diet: clear liquid diet DVT prophylaxis: SCDs CODE STATUS: Full code The patient's management plan was discussed with my attending physician Dr. Jones. Zahraa Ji, PGY-1 Attending Provider Attestation/Addendum I reviewed labs, imaging, EKG, home medications and prior available records. Face to face evaluation was performed by me. I have personally examined the patient and discussed assessment and plan with the IM team. I reviewed the resident note and agree with the plan with exceptions as below. Intractable nausea and vomiting Epigastric pain Upper GI bleed Marijuana abuse Tobacco use Start IV hydration Start IV Protonix Management of nausea/vomiting as needed Management of pain as needed Monitor H&H Consulted GI Counseled the patient regarding the importance of avoiding marijuana and tobacco Counseled the patient regarding the importance of drinking alcohol within limits
[2024-10-23] MEDS: SODIUM CHLORIDE 0.9% 1000 ML 1,000 ML 75 ML IV (17:23)
--- NOTE | 2024-10-23 19:42 | PC.NURSE ---
Report called to Keena RN
--- NOTE | 2024-10-23 23:11 | PD.IMCONS ---
HPI Data of Consult Requesting Physician: Stan Jones MD Primary Care Provider: Physician No Primary/Family Consult Narrative Reason for consult: Hematemesis, nausea vomiting History of present illness: 44 years old male comes in for evaluation to the emergency room with nausea vomiting and 3-4 episodes of hematemesis She does have occasional drink does smoke marijuana Patient was subsequently admitted cc:: cc: Stan Jones MD Review of Systems Review of Systems Systems Reviewed: All systems reviewed, normal except as documented Meds Home Medications and Allergies Allergies Allergy/AdvReac Type Severity Reaction Status Date / Time No Known Allergies Allergy Verified 10/22/24 00:53 Exam Vital Signs Temp Pulse Resp BP Pulse Ox O2 Del Method 98.8 F 45 L 17 152/93 H 97 Room Air 10/23/24 20:23 10/23/24 22:46 10/23/24 20:23 10/23/24 20:23 10/23/24 20:23 10/23/24 20:23 Constitutional Comments: Alert oriented Routine Respiratory Exam Comments: Normal to auscultation Routine Abdominal Exam Comments: Soft nontender Results Labs 10/23/24 11:15 10/23/24 11:15 Labs: Short CBC 10/23/24 Range/Units 11:15 WBC 11.6 H D (3.8-10.6) Thou/mm3 Hgb 15.0 (13.5-16.0) g/dL Hct 42.4 (41.0-53.0) % Plt Count 288 D (140-440) Thou/mm3 BMP 10/23/24 11:15 Sodium 142 Potassium 3.4 D Chloride 107 Carbon Dioxide 24.0 BUN 11 Creatinine 0.8 Glucose 121 H Calcium 9.3 Liver Function 10/23/24 Range/Units 11:15 Total Bilirubin 1.5 H (0.3-1.2) mg/dL AST 23 (0-34) U/L ALT 28 (10-49) U/L Alkaline Phosphatase 60 (46-116) U/L Albumin 4.2 (3.5-5.0) gm/dL Urine 10/23/24 Range/Units 13:42 Urine Color Yellow (Lt Yel-Yel) Urine Clarity Cloudy A (Clear/Hazy) Urine pH 7.0 (5.0-7.0) Ur Specific [place] 1.020 (1.001-1.035) Urine Protein Trace (Neg - Trace) Urine Glucose (UA) Negative (Negative) Assessment and Plan Additional Assessment & Plan Additional Plan: Nausea vomiting Hematemesis Epigastric abdominal pain Plan Consent obtained for fiberoptic esophagogastroduodenoscopy with possible biopsy possible therapeutic intervention under intravenous moderate sedation scheduled for tomorrow N.p.o. 11 AM tomorrow except p.o. meds IV Protonix Advised complete abstinence from marijuana Will follow the patient Thank you very much for the opportunity to participate in care of this patient
[2024-10-24] VITALS (23 sets, daily range): BP systolic 99–155; BP diastolic 61–94; PULSE 12–102; RESP 13–96; TEMP 36–36.6; O2SAT 94–97
[2024-10-24] MEDS: ONDANSETRON INJ 2 MG/ML INJ 2 ML 4 MG IV (04:48)
[2024-10-24] MEDS: SODIUM CHLORIDE 0.9% 1000 ML 1,000 ML 75 ML IV ×2 (04:50→20:02)
[2024-10-24 05:21] LABS: Basophils % (Auto) 0 % (0-2.5); Eosinophils % (Auto) 0 % (0-10); Hematocrit 41.8 % (41.0-53.0); Hemoglobin 14.2 g/dL (13.5-16.0); Immature Granulocytes % (Auto) 0 % (0-0); Immature Granulocytes Auto 0.02 Thou/mm3 (0.00-0.00); Lymphocytes # (Auto) 1.5 Thou/mm3 (1.0-4.8); Lymphocytes % (Auto) 15 % (10-50); Mean Corpuscular Hemoglobin 28.7 pg (25.0-35.0); Mean Corpuscular Volume 85 fL (80-100); Monocytes # (Auto) 1.1 Thou/mm3 (0.0-0.8); Monocytes % (Auto) 11 % (0-12); Neutrophils # (Auto) 7.6 Thou/mm3 (1.8-7.7); Neutrophils % (Auto) 74 % (37-80); Nucleated Red Blood Cell % 0 /100 WBC (0); Platelet Count 277 Thou/mm3 (140-440); RDW Standard Deviation 38.6 fL (35.1-43.9); Red Blood Count 4.94 Miln/mm3 (4.50-5.90); White Blood Count 10.2 Thou/mm3 (3.8-10.6)
[2024-10-24 05:48] LABS: Alanine Aminotransferase 21 U/L (10-49); Albumin, Serum 3.8 gm/dL (3.5-5.0); Albumin/Globulin Ratio 1.8 (1.2-2.2); Alkaline Phosphatase 56 U/L (46-116); Anion Gap 10 (7-16); Aspartate Amino Transferase 19 U/L (0-34); BUN/Creatinine Ratio 11 Ratio (12-20); Bilirubin,Total 1.5 mg/dL (0.3-1.2); Blood Urea Nitrogen 10 mg/dL (9-23); Calcium 8.7 mg/dL (8.3-10.6); Calcium (Corrected) 8.9 mg/dL (8.5-10.1); Carbon Dioxide 24.3 mMol/L (20.0-31.0); Chloride 107 mMol/L (98-107); Creatinine (Component) 0.9 mg/dL (0.6-1.3); Estimated Creatinine Clearance 110.7 mL/min (>60); Globulin 2.1 gm/dL (2.3-3.5); Glucose 106 mg/dL (74-106); Magnesium 1.8 mg/dL (1.6-2.6); Osmolality,Calculated 280 (275-295); Phosphorous 2.9 mg/dL (2.4-5.1); Potassium 3.5 mMol/L (3.4-5.1); Sodium 141 mMol/L (136-145); Total Protein 5.9 gm/dL (5.7-8.2); eGFR > 60 See Note
[2024-10-24] MEDS: PANTOPRAZOLE INJ 40 MG VIAL IVP ×2 (09:15→21:06)
--- NOTE | 2024-10-24 11:11 | ESPR_ITS ---
Documentation for date of: 10/24/24 Subjective Subjective Interval history: Patient examined at bedside. Overnight, he was bradycardic with rate 45-50 but remained asymptomatic, comfortable in bed. Patient is disengaged, minimally answering questions. Last vomiting episode was yesterday in ED. Has not had BM since admission. States that pain is improving. EGD is pending for evaluation of possible upper GI bleed. Hb 14--stable. Exam Vital Signs Temp Pulse Resp BP Pulse Ox O2 Del Method 97.7 F 63 18 144/78 H 95 Room Air 10/24/24 07:52 10/24/24 07:52 10/24/24 07:52 10/24/24 07:52 10/24/24 07:52 10/24/24 07:52 Narrative Exam General: Middle-aged male alert and oriented x3. HEENT: NCAT, No JVD noted. Mucosa moist. Pupils are equal and reactive to light bilaterally Cardiovascular: Normal S1 and S2. Regular rate and rhythm. Respiratory: Lungs are clear to auscultation bilaterally. No wheezing or crackles heard. Abdomen: Soft, some tenderness to palpation, not distended, normal bowel sounds. Skin: Warm to touch, dry, no rashes noted Musculoskeletal: No gross injuries. Able to move all 4 extremities. No pitting edema Neuro: Alert and oriented x3. No focal neuro deficits. Psych: flat affect. Objective Labs 10/24/24 04:00 10/24/24 04:00 Labs: Laboratory Results - last 24 hr 10/23/24 10/23/24 10/24/24 11:15 13:42 04:00 WBC 11.6 H D 10.2 RBC 5.08 4.94 Hgb 15.0 14.2 Hct 42.4 41.8 MCV 84 85 MCH 29.5 28.7 MCHC 35.4 34.0 RDW Std Deviation 38.4 38.6 Plt Count 288 D 277 Neut % (Auto) 77 74 Lymph % (Auto) 12 15 [place] % (Auto) 10 11 Eos % (Auto) 0 0 Baso % (Auto) 0 0 Neut # (Auto) 9.0 H 7.6 Lymph # (Auto) 1.4 1.5 [place] # (Auto) 1.2 H 1.1 H Eos # (Auto) 0.0 0.0 Baso # (Auto) 0.0 0.0 Immature Gran # (Auto) 0.03 H 0.02 H Absolute Nucleated RBC 0.00 0.00 Immature Gran % 0 0 Nucleated RBC % 0 0 Sodium 142 141 Potassium 3.4 D 3.5 Chloride 107 107 Carbon Dioxide 24.0 24.3 Anion Gap 11 10 BUN 11 10 Creatinine 0.8 0.9 Estim Creat Clear Calc 121.0 110.7 eGFR > 60 > 60 BUN/Creatinine Ratio 14 11 L Glucose 121 H 106 Calculated Osmolality 283 280 Calcium 9.3 8.7 Corrected Calcium 9.3 8.9 Phosphorus 2.9 Magnesium 2.0 1.8 Total Bilirubin 1.5 H 1.5 H AST 23 19 ALT 28 21 Alkaline Phosphatase 60 56 Total Protein 6.5 5.9 Albumin 4.2 3.8 Globulin 2.3 2.1 L Albumin/Globulin Ratio 1.8 1.8 Lipase 42 D Ur Collection Type Clean Catch Urine Color Yellow Urine Clarity Cloudy A Urine pH 7.0 Ur Specific [place] 1.020 Urine Protein Trace Urine Glucose (UA) Negative Urine Ketones 3+ A Urine Blood Negative Urine Nitrite Negative Urine Bilirubin Negative Urine Urobilinogen (Auto) Negative Ur Leukocyte Esterase Negative Urine RBC 6 H Urine WBC 1 Ur Squamous Epith Cells 0 Amorphous Crystals Present A Urine Bacteria Rare Urine Yeast (Budding) Present A Ur Culture Indicated? Not Indicated Urine Opiates Screen Negative Urine Fentanyl Screen Negative Ur Barbiturates Screen Negative U Amphetamin/Meth Scrn Negative U Benzodiazepines Scrn Negative U Cocaine Metab Screen Negative U Marijuana (THC) Screen Positive A Quality Measures Quality Measures none Assessment & Plan Assessment Current Active Medications: Generic Name Dose Route Start Last Admin Trade Name Freq PRN Reason Stop Dose Admin Acetaminophen 650 mg 10/23/24 16:29 Acetaminophen Supp 650 Mg Supp SD 11/22/24 16:28 Q6HR PRN Fever > 100.3 or pain Protocol Al Hydrox/Mg Hydrox/Simethicone 30 ml 10/23/24 16:41 Mg Hyd/Al Hyd/Wale (Maalox Reg) Susp 30 Ml Udc PO 11/22/24 16:40 X1 PRN stomach pain Diphenhydramine HCl 25 mg 10/23/24 16:34 Diphenhydramine Inj 50 Mg/Ml Vial IV 11/22/24 16:33 Q4HR PRN NAUSEA OR VOMITING Sodium Chloride 1,000 mls @ 75 mls/hr 10/23/24 16:30 10/24/24 04:50 Ns IV 11/22/24 16:29 75 mls/hr .[id number] [place] Administration Morphine Sulfate 1 mg 10/23/24 16:42 Morphine Sulf Inj 10 Mg/Ml Vial IVP Q6HR PRN abdominal pain 4-6 Ondansetron HCl 4 mg 10/23/24 20:19 10/24/24 04:48 Ondansetron Inj 2 Mg/Ml Inj 2 Ml IV 11/22/24 20:18 4 mg Q6HR PRN Administration NAUSEA OR VOMITING Protocol Pantoprazole Sodium 40 mg 10/23/24 21:00 10/23/24 20:36 Pantoprazole Inj 40 Mg Vial IVP 11/22/24 20:59 40 mg BID [place] Administration Plan Luther Diallo is 44 yr male with PMH of THC use, cannabinoid hyperemesis syndrome, gastric ulcers (?) who presented to the ED due to abdominal pain, nausea, decreased appetite, vomiting since past one week. Patient has had 4?5 episodes of emesis in the past few days with some blood. He has never undergone any GI workup. GI Dr. Claros was consulted. Patient admitted for management of cyclical vomiting episodes and workup of possible GI bleed. # Workup upper GI bleed #Cyclical vomiting #Cannabinoid hyperemesis syndrome #Hx marijuana use Patient endorses nausea and vomiting since past week. Vomit is dark in color. Possible esophageal tear from vomiting vs gastric ulcer bleeding. ?GI Dr. Claros consulted ? Clear liquid diet ?Diphenhydramine 25 mg IV q4hr PRN nausea ?Maalox for pain ? Morphine 1 mg IV q6hr PRN for pain ?Zofran 4 mg IV ?Pantoprazole 40 mg BID ?Maintenance fluids NS ?Avoid NSAIDs -EGD pending -patient needs to refrain from smoking marijuana. Health maintenance: Dispo: med surg, GI consult Diet: clear liquid diet DVT prophylaxis: SCDs CODE STATUS: Full code The patient's management plan was discussed with my attending physician Dr. Jones. Zahraa Ji, PGY-1 Attending Provider Attestation/Addendum I reviewed labs, imaging, EKG, home medications and prior available records. Face to face evaluation was performed by me. I have personally examined the patient and discussed assessment and plan with the IM team. I reviewed the resident note and agree with the plan with exceptions as below. Intractable nausea and vomiting Epigastric pain Upper GI bleed Marijuana abuse Tobacco use Continue IV hydration Continue IV Protonix Management of nausea/vomiting as needed Management of pain as needed Monitor H&H: Stable Consulted GI: Plan for EGD Counseled the patient regarding the importance of avoiding marijuana and tobacco Counseled the patient regarding the importance of drinking alcohol within limits
--- NOTE | 2024-10-24 15:47 | PC.SS ---
SS met with patient regarding his d/c plan.? Pt is alert/oriented.? Pt was admitted for Upper GI Bleed.? Pt confirmed demographic and contact information is correct on facesheet.? Pt resides alone.? Pt ambulates independently without assistance or DME.? Pt is ok with all ADLs.? Patient?s pharmacy of choice is [facility] in [place].? Pt named his , Joanne Magaña medical decision maker if he is unable.? Patient?s choice is to return home upon d/c.? Pt states he has an advance directive at home.? Pt states he followed up with PCP on . D/C plan:? Return home Next of Kin:? Joanne Coreas, , phone# [phone] PCP:? [facility] in [place] Address:? Correct on facesheet
--- NOTE | 2024-10-24 18:11 | PC.NURSE ---
Called pt's , Joanne, informed her that pt has left to have his EGD completed
--- NOTE | 2024-10-24 18:42 | SUR.PHASEI ---
Pt. arrived to recovery via gurney, eyes closed, responds to verbal commands, VSS, no c/o pain or nausea at this time, pt. allowed to sleep. Report received from Letty SIMON.
--- NOTE | 2024-10-24 19:11 | SUR.PHASEI ---
Called and gave report on pt. s/p procedure to Keena RN on M?S unit.
--- NOTE | 2024-10-24 19:16 | SUR.PHASEI ---
Pt. transferred to room 379 via gurney by staff, VSS, no c/o pain or nausea at this time, IV flushed and patentKeena RN assumed care of pt.
[2024-10-24] MEDS: FLUCONAZOLE/NS 400 MG IVPB 400 MG/200 ML BAG 100 MG IV (20:03)
[2024-10-24] MEDS: NYSTATIN SUSP 5 ML UDC PO (21:06)
[2024-10-25] VITALS (8 sets, daily range): BP systolic 119–128; BP diastolic 64–85; PULSE 51–72; RESP 16–96; TEMP 36.1–37.6; O2SAT 96–100
[2024-10-25] MEDS: NYSTATIN SUSP 5 ML UDC PO ×2 (05:06→13:22)
[2024-10-25 05:33] LABS: Basophils % (Auto) 0 % (0-2.5); Eosinophils # (Auto) 0.1 Thou/mm3 (0.0-0.5); Eosinophils % (Auto) 1 % (0-10); Hematocrit 40.5 % (41.0-53.0); Hemoglobin 13.8 g/dL (13.5-16.0); Immature Granulocytes % (Auto) 0 % (0-0); Immature Granulocytes Auto 0.01 Thou/mm3 (0.00-0.00); Lymphocytes % (Auto) 40 % (10-50); Mean Corpuscular HGB Conc 34.1 g/dl (31.0-37.0); Mean Corpuscular Hemoglobin 28.9 pg (25.0-35.0); Mean Corpuscular Volume 85 fL (80-100); Monocytes # (Auto) 0.8 Thou/mm3 (0.0-0.8); Monocytes % (Auto) 11 % (0-12); Neutrophils # (Auto) 3.6 Thou/mm3 (1.8-7.7); Neutrophils % (Auto) 48 % (37-80); Nucleated Red Blood Cell % 0 /100 WBC (0); Platelet Count 244 Thou/mm3 (140-440); RDW Standard Deviation 38.5 fL (35.1-43.9); Red Blood Count 4.78 Miln/mm3 (4.50-5.90); White Blood Count 7.5 Thou/mm3 (3.8-10.6)
[2024-10-25 05:57] LABS: Alanine Aminotransferase 17 U/L (10-49); Albumin, Serum 3.4 gm/dL (3.5-5.0); Albumin/Globulin Ratio 1.7 (1.2-2.2); Alkaline Phosphatase 49 U/L (46-116); Anion Gap 8 (7-16); Aspartate Amino Transferase 17 U/L (0-34); BUN/Creatinine Ratio 10 Ratio (12-20); Bilirubin,Total 1.7 mg/dL (0.3-1.2); Blood Urea Nitrogen 10 mg/dL (9-23); Calcium (Corrected) 9.5 mg/dL (8.5-10.1); Carbon Dioxide 23.8 mMol/L (20.0-31.0); Chloride 109 mMol/L (98-107); Estimated Creatinine Clearance 99.7 mL/min (>60); Glucose 92 mg/dL (74-106); Osmolality,Calculated 280 (275-295); Potassium 3.7 mMol/L (3.4-5.1); Sodium 141 mMol/L (136-145); Total Protein 5.4 gm/dL (5.7-8.2); eGFR > 60 See Note
[2024-10-25] MEDS: ONDANSETRON INJ 2 MG/ML INJ 2 ML 4 MG IV (08:06)
[2024-10-25] MEDS: PANTOPRAZOLE INJ 40 MG VIAL IVP (08:06)
[2024-10-25 10:35] LABS: Hepatitis A Antibody IgM Non Reactive (Non React); Hepatitis B Core Antibody IgM Non Reactive (Non React); Hepatitis B Surface Antigen Non Reactive (Non React); Hepatitis C Antibody Non Reactive (Non React)
--- NOTE | 2024-10-25 10:40 | PC.SS ---
Follow up note: Dr Claros is consulting. EGD yesterday. Advance diet.
--- NOTE | 2024-10-25 10:41 | PC.SS ---
Addendum entered by Donna Sue 10/25/24 15:38: SS spoke to pt about following up at [facility] with Dr. Lees on November 01, 2024 at 1pm. Pt is agreeable. SS provided pt with [facility] with walk in time. Original Note: Pt will return home upon dc.
[2024-10-25] MEDS: SODIUM CHLORIDE 0.9% 1000 ML 1,000 ML 75 ML IV (11:03)
--- NOTE | 2024-10-25 11:26 | PD.RESDS ---
Planned Discharge Date 10/25/24 DS: Providers Provider Date of admission: 10/23/24 16:44 Primary care physician: Physician No Primary/Family Admitting Provider: Stan Jones MD Attending Provider on Admission: Stan Jones MD Consults: 10/23/24 16:39 Consult to Gastroenterology Stat Comment: Consulting Provider: Brock Claros Attending Provider on DC: Stan Jones MD Discharging Provider: Stan Jones MD Anticipated date of discharge: 10/25/24 DS: Diagnosis Problem List Completed Was Problem List Reviewed/Reconciled?: Yes Hospital Course Hospital Course Hospital course: Hospital course: Mr. Diallo is a 44-year-old male with past medical history of THC use, cyclical vomiting syndrome and gastric ulcers who presented to [facility] emergency department on 10/23/2024 with a chief complaint of abdominal pain nausea and decreased appetite associated with vomiting for the last 1 week. Patient reported having 4-5 episodes of emesis in the past few days with some blood. Patient was started on clear liquid diet, was given Benadryl for nausea to manage cyclical vomiting syndrome and pain was managed with IV morphine. Patient has significant nausea required multiple doses of antiemetics and gastroenterology was consulted patient underwent EGD findings significant and consistent with esophageal ulcers, esophagitis, candidiasis otitis and gastritis. Patient was started on nystatin swish and swallow 3 times daily along with IV Diflucan. With the progression of hospital course patient's diet was advanced to peptic ulcer diet, patient condition improved. Further plan is to discharge patient home on oral fluconazole, Protonix twice daily for 30 days and Zofran as needed for nausea and vomiting. Patient denies having a primary care physician, patient counseled to follow-up with the [facility] for biopsy results and to establish care. Patient condition improved with the progression of hospital course and patient is stable for discharge, patient responded well to hospital treatment. Discharge diagnosis: #Esophageal candidiasis #Esophageal ulcers #Esophagitis #Gastritis #GI bleed workup #Cyclical vomiting syndrome #Cannabinoid hyperemesis syndrome #THC dependence Case discussed with Attending Dr. Jones. Lola Lees PGY1 Disclaimer: This note was dictated by speech recognition. Minor errors in rail assembler may be present due to voice recognition software. Status at Discharge Functional status at discharge: independent ambulation Overall status at discharge: patient is progressing back to baseline Time Spent with Patient Time attestation: Total time spent providing and/or coordinating discharge services: Greater than 35 minutes Time spent: Greater than 30 minutes Exam Vital Signs Temp Pulse Resp BP Pulse Ox O2 Del Method O2 Flow Rate 99.6 F 55 L 16 119/81 96 Room Air 2 10/25/24 08:35 10/25/24 08:45 10/25/24 08:45 10/25/24 07:59 10/25/24 08:35 10/25/24 08:35 10/24/24 18:51 Narrative Exam General: Middle-aged male alert and oriented x3. HEENT: NCAT, No JVD noted. Mucosa moist. Pupils are equal and reactive to light bilaterally Cardiovascular: Normal S1 and S2. Regular rate and rhythm. Respiratory: Lungs are clear to auscultation bilaterally. No wheezing or crackles heard. Abdomen: Soft, some tenderness to palpation, not distended, normal bowel sounds. Skin: Warm to touch, dry, no rashes noted Musculoskeletal: No gross injuries. Able to move all 4 extremities. No pitting edema Neuro: Alert and oriented x3. No focal neuro deficits. Psych: flat affect. Discharge Plan Plan Patient Disposition: HOME (Self Care) Patient condition on transfer: Stable Prescriptions/Referrals Prescriptions/Med Rec: New fluconazole 200 mg tablet 200 mg PO QDAY 21 Days Qty: 21 0RF pantoprazole [Protonix] 40 mg tablet,delayed release (DR/EC) 40 mg PO BID 30 Days Qty: 60 0RF ondansetron HCl 4 mg tablet 4 mg PO Q8H PRN (Reason: nausea and vomiting) 10 Days Qty: 90 0RF Discontinued pantoprazole [Protonix] 40 mg tablet,delayed release (DR/EC) 40 mg PO QDAY Qty: 30 0RF metoclopramide HCl [Reglan] 10 mg tablet 10 mg PO Q6H PRN (Reason: nausea and vomiting) Qty: 14 0RF ondansetron 4 mg tablet,disintegrating 4 mg PO Q8H PRN (Reason: nausea and vomiting) Qty: 14 0RF doxycycline monohydrate 100 mg capsule 100 mg PO BID Qty: 14 0RF metronidazole 500 mg tablet 500 mg PO BID Qty: 14 0RF ondansetron 4 mg tablet,disintegrating 4 mg PO Q8H PRN (Reason: nausea and vomiting) Qty: 10 0RF metoclopramide HCl [Reglan] 10 mg tablet 10 mg PO Q6H PRN (Reason: nausea and vomiting) Qty: 14 0RF ondansetron 4 mg tablet,disintegrating 4 mg PO TID PRN (Reason: nausea and vomiting) 30 Days Qty: 10 0RF Referrals: No Primary/Family,Physician [Primary Care Provider] - Lola Lees MD [Resident] - Patient/Caregiver Discharge Instructions Discharge Activity: activity as tolerated Other Discharge Activity Instructions:: Continue fluconazole 200 mg daily for 21 days. Take pantoprazole 40 mg twice for 1 month Follow-up outpatient for the results of esophageal biopsies Continue Zofran as needed for nausea Take peptic ulcer?diet, avoid spicy foods and caffeine. Stop smoking marijuana. Follow-up in [facility] in 1 to 2 weeks. Call [phone] to make an appointment Address: [facility], [facility], [facility] [address], [address], [place], [address] Return to ED if symptoms return or worsen. Other Discharge Diet Instructions: Peptic ulcer disease-diet Education Materials: Self-Care for Vomiting and Diarrhea, Discharge Instructions- Eating ... Print Language: Vietnamese Stand Alone Forms: Kathy Award Info., Patient Portal Info Letter, Work/Release Restrictions Discharge Order Discharge Orders: Discharge (Routine); Ordered 10/25/24 Ordered By: Lola Lees Quality Discharge Quality Measures VTE prophylaxis MD Attestestation MD Attestation I reviewed labs, imaging, EKG, home medications and prior available records. Face to face evaluation was performed by me. I have personally examined the patient and discussed assessment and plan with the IM team. I reviewed the resident note and agree with the plan with exceptions as below. Intractable nausea and vomiting Epigastric pain Upper GI bleed Marijuana abuse Tobacco use Status post EGD that showed esophageal ulcer and Kassandra esophagitis Will discharge on fluconazole 200 mg for 21 days Monitor H&H: Stable Peptic ulcer disease diet Counseled the patient regarding the importance of avoiding marijuana and tobacco Counseled the patient regarding the importance of drinking alcohol within limits Time spent is 40 minutes. More than 50% of the time was spent on patient education and coordination of care.
[2024-10-25 11:52] LABS: HIV (1&2) Antibody Rapid Non-Reactive
== END 2024-10-25 16:25 | disposition home or self-care (01) ==
LOC: SERX 16:29 → SERHOLD 17:12 → S3SX 10-24 06:21 → SERHOLD 10-24 13:11 → S3SX 10-24 13:11
PROVIDERS: Specialist; Admitting Provider Student in an Organized Health Care Education/Training Program; Emergency Provider Emergency Medicine; Visit Provider Student in an Organized Health Care Education/Training Program
PROC: (CPT 43239; principal; 2024-10-24 17:00)
DX: K22.11 Ulcer of esophagus with bleeding (principal); F12.90 Cannabis use, unspecified, uncomplicated; F17.210 Nicotine dependence, cigarettes, uncomplicated; K29.71 Gastritis, unspecified, with bleeding; B37.81 Candidal esophagitis; F17.200 Nicotine dependence, unspecified, uncomplicated; F19.11 Other psychoactive substance abuse, in remission; Z83.3 Family history of diabetes mellitus; Z87.11 Personal history of peptic ulcer disease; Z01.810 Encounter for preprocedural cardiovascular examination; F12.20 Cannabis dependence, uncomplicated
CPT/HCPCS: 43239; 36415; 80053; 80074; 80307; 81001; 83690; 83735; 84100; 85025; 86703; 96361; 96372; 96374; 96375; 99285; A4649; G0378; J1200; J1450; J1630; J2175; J2250; J2405; J2470; J3010; J7030; Q0162; A9270

== ENCOUNTER 2025-05-06 19:03 | Emergency (ER) | payer MEDICAID, SELFPAY ==
[2025-05-06 19:08] VITALS: PULSE 64
[2025-05-06 19:53] VITALS: BP 149/89; PULSE 53; RESP 20; TEMP 36.4; O2SAT 97
--- NOTE | 2025-05-06 20:04 | PD.EDABDPN ---
ED Abdominal Pain RME/HPI General Chief Complaint: Abdominal Pain Stated complaint: ABDOMINAL PAIN Time seen by provider: 05/06/25 20:03 Arrival date/time: 05/06/25 19:03 RME / HPI RME / HPI narrative: Dr. Jaramillo?s Main ED Evaluation: 44yo male GLENN from home presents to the ED for multiple complaints. Patient reports having nausea, vomiting, constipation, and epigastric pain that started for the last few days. Patient describes his abdominal pain as having muscle spasms . Patient endorses having similar symptoms in the past. He last smoked marijuana this morning. Patient denies any fever, chills, or any other associated symptoms. Related Data Previous Rx's ?Medication ?Instructions ?Recorded metoclopramide HCl 10 mg tablet 10 mg PO Q6H PRN nausea and 05/06/25 (Reglan) vomiting #20 tabs Allergies Allergy/AdvReac Type Severity Reaction Status Date / Time cayenne Allergy Verified 10/25/24 13:18 paprika Allergy Verified 10/25/24 13:18 Review of Systems Review of Systems Systems Reviewed: All systems reviewed, normal except as documented Past Medical History Past Medical History NEUROLOGIC: Negative Seizures CARDIAC: Negative Cardiac Disorders or Congestive Heart Failure RESPIRATORY: Negative Chronic Obstructive Pulmonary Disease (COPD) or Asthma GASTROINTESTINAL: Positive Gastrointestinal Disorders (Gastric ulcers) and Gastrointestinal Bleed GENITOURINARY: Negative Genitourinary Disorders or Renal Disease ENDOCRINE: Negative Diabetes Mellitus Type 1 or Diabetes Mellitus Type 2 HEMATOLOGIC: Positive Anemia; Negative Sickle Cell Disease OTHER HISTORY: Negative Blood Transfusions or Anesthesia Reactions Social History SMOKING STATUS: Never smoker SUBSTANCE USE: marijuana ED Exam Narrative Physical exam: Generally patient is alert and somewhat ill-appearing, skin is cool pale and diaphoretic, heart regular rate and rhythm, lungs clear to auscultation equal bilaterally, abdomen soft bowel sounds present nondistended nontympanic with epigastric abdominal tenderness without rebound. Neurologic exam no focal motor or sensory deficits. Course Quality Measures none Orders Category Date Time Status CBC Stat Lab 05/06/25 21:15 Completed CMP [Comprehensive Metabolic Panel] Stat Lab 05/06/25 21:15 Completed Drug Screen,Urine Stat Lab 05/06/25 21:30 Completed Lipase Stat Lab 05/06/25 21:15 Completed Magnesium Stat Lab 05/06/25 21:15 Completed Haloperidol Lactate [Haldol Inj] Med 05/06/25 20:10 Active 5 mg IV Q6HR PRN Metoclopramide Inj [Reglan Inj] Med 05/06/25 20:10 Discontinued 10 mg IVP X1 ONE Sodium Chloride 0.9% 1000 ml [Ns] 1,000 ml Med 05/06/25 20:10 Discontinued IV 999 mls/hr Vital Signs Vital signs: Vital Signs Temperature 97.6 F 05/06/25 19:53 Pulse Rate 53 L 05/06/25 19:53 Respiratory Rate 20 05/06/25 19:53 Blood Pressure 149/89 H 05/06/25 19:53 Pulse Oximetry (%) 97 05/06/25 19:53 Oxygen Delivery Method Room Air 05/06/25 19:53 Abdominal Pain MDM MDM Narrative MDM Narrative:: Scribe Attestation: 05/06/25 - Brittanie Nunez, am scribing for and in the presence of Dr. Jaramillo. I investigated this patient's past medical history. He has multiple visits in the past for cannabinoid hyperemesis syndrome and gastritis. He has had an EGD in the past showing gastric ulcers. Patient was originally stating that he was vomiting blood. Here in the emergency room the patient really has not vomited but was spitting up clear-colored saliva. Patient's hemoglobin is 15. Platelet count is normal. Potassium is normal at 3.7. CO2 is 19.7. Patient was hydrated with a liter normal saline given Reglan 10 mg IV and Haldol 5 mg IV with benefit. Patient was rather adamant that he felt that he needed to be admitted to the hospital. I explained to the patient that he has no indications for admission at this time. I asked him if he wanted another dose of antinausea medication and he refused. Patient will be discharged on Reglan to be taken as prescribed. I do long conversation with the patient on the need to stop smoking marijuana which is urinary tox screen was positive for tonight. He is to have clear liquid diet and advance as tolerated. Patient data External records reviewed:: [facility] previous records (Per chart review, patient was admitted here on 10/23/24 for cannabinoid hyperemesis syndrome.) and EMS form Clinical information provided by:: patient Social determinants that could affect healthcare access:: substance use (marijuana use) Patient has the following chronic illnesses:: none How is presenting disease/condition affected by chronic disease/condition?: no chronic disease Evaluation data The following diagnostics were reviewed and interpreted by me:: lab results Lab and/or radiology exams considered but not ordered:: none Interpretation Summary: See MDM. Medications / Prescriptions Medications or Prescriptions considered but not ordered:: none Medication administrations:: Medication Administration History Haloperidol Lactate (Haloperidol Lact Inj 5 Mg/Ml Vial) 5 mg IV Q6HR PRN PRN Reason: AGITATION (SEVERE) Stop: 06/05/25 20:09 Discontinued Medications Sodium Chloride (Ns) 1,000 mls @ 999 mls/hr IV .Q1H1M ONE Stop: 05/06/25 21:10 Last Admin: 05/06/25 21:16 Dose: 999 mls/hr Documented By: SAVANAH Metoclopramide HCl (Metoclopramide Inj 5 Mg/Ml Vial 2 Ml) 10 mg IVP X1 ONE; Protocol Stop: 05/06/25 20:11 Last Admin: 05/06/25 21:16 Dose: 10 mg Documented By: SAVANAH see above Consultations Consultation(s) initiated? (list below): No Diagnosis Differential diagnosis abdominal pain: other (See MDM) Most likely diagnosis given after review of the tests above:: see clinical impression below Admission Indicated Admission indicated?: not indicated Admission Request Was there a request for admission?: No Disposition Plan Disposition Plan: Discharge Discharge Attestation Discharge Attestation: The patient and all family members were given an opportunity to ask questions and understood the discharge instructions. Discharge instructions specifically effects, indications for sooner follow up or return to the emergency department, and the expected course of current diagnosis. Patient condition: Stable Discharge Plan Plan Patient Disposition: HOME (Self Care) Prescriptions/Referrals Prescriptions/Med Rec: New metoclopramide HCl [Reglan] 10 mg tablet 10 mg PO Q6H PRN (Reason: nausea and vomiting) Qty: 20 0RF Referrals: No Primary/Family,Physician [Primary Care Provider] - In 1 week Problem List Clinical Impression: Cannabinoid hyperemesis syndrome Patient/Caregiver Discharge Instructions Additional Instructions: There is no need for hospital admission at this time. It is important for you to stop smoking marijuana. Reglan as prescribed. Clear liquid diet and advance as tolerated. Print Language: Kiswahili Stand Alone Forms: Kathy Award Info., Patient Portal Info Letter
[2025-05-06] MEDS: SODIUM CHLORIDE 0.9% 1000 ML 1,000 ML 999 ML IV (21:16)
[2025-05-06] MEDS: METOCLOPRAMIDE INJ 5 MG/ML VIAL 2 ML 10 MG IVP (21:16)
[2025-05-06 21:23] LABS: Basophils # (Auto) 0.1 Thou/mm3 (0.0-0.2); Basophils % (Auto) 0 % (0-2.5); Eosinophils # (Auto) 0.0 Thou/mm3 (0.0-0.5); Eosinophils % (Auto) 0 % (0-10); Hematocrit 46.3 % (41.0-53.0); Hemoglobin 15.6 g/dL (13.5-16.0); Immature Granulocytes Auto 0.07 Thou/mm3 (0.00-0.00); Lymphocytes # (Auto) 0.9 Thou/mm3 (1.0-4.8); Lymphocytes % (Auto) 5 % (10-50); Mean Corpuscular HGB Conc 33.7 g/dl (31.0-37.0); Mean Corpuscular Hemoglobin 28.3 pg (25.0-35.0); Mean Corpuscular Volume 84 fL (80-100); Monocytes # (Auto) 0.9 Thou/mm3 (0.0-0.8); Monocytes % (Auto) 6 % (0-12); Neutrophils # (Auto) 14.3 Thou/mm3 (1.8-7.7); Neutrophils % (Auto) 88 % (37-80); Nucleated Red Blood Cell # 0.00 Thou/mm3 (0.00-0.00); Nucleated Red Blood Cell % 0 /100 WBC (0); Platelet Count 296 Thou/mm3 (140-440); RDW Standard Deviation 37.7 fL (35.1-43.9); Red Blood Count 5.52 Miln/mm3 (4.50-5.90); White Blood Count 16.2 Thou/mm3 (3.8-10.6)
[2025-05-06 21:49] LABS: Alanine Aminotransferase 17 U/L (10-49); Albumin, Serum 5.2 gm/dL (3.5-5.0); Albumin/Globulin Ratio 2.3 (1.2-2.2); Alkaline Phosphatase 82 U/L (46-116); Anion Gap 16 (7-16); Aspartate Amino Transferase 22 U/L (0-34); BUN/Creatinine Ratio 10 Ratio (12-20); Bilirubin,Total 1.8 mg/dL (0.3-1.2); Blood Urea Nitrogen 12 mg/dL (9-23); Calcium 9.5 mg/dL (8.3-10.6); Calcium (Corrected) 9.5 mg/dL (8.5-10.1); Carbon Dioxide 19.7 mMol/L (20.0-31.0); Chloride 108 mMol/L (98-107); Creatinine (Component) 1.2 mg/dL (0.6-1.3); Globulin 2.3 gm/dL (2.3-3.5); Glucose 133 mg/dL (74-106); Lipase 41 U/L (12-53); Magnesium 2.0 mg/dL (1.6-2.6); Osmolality,Calculated 288 (275-295); Potassium 3.7 mMol/L (3.4-5.1); Sodium 144 mMol/L (136-145); Total Protein 7.5 gm/dL (5.7-8.2); eGFR > 60 See Note
[2025-05-06 22:02] LABS: Amphetamine/Methamp Scrn,U Negative (Negative); Barbiturate Screen,Urine Negative (Negative); Benzodiazepines Screen,Urine Negative (Negative); Benzoylecgonine Screen, Ur Negative (Negative); Fentanyl Screen,Urine Negative (Negative); Opiate Screen,Urine Negative (Negative); THC Screen,Urine Positive (Negative)
== END 2025-05-06 22:31 | disposition home or self-care (01) ==
PROVIDERS: Emergency Provider Emergency Medicine
DX: R11.16 Cannabis hyperemesis syndrome (principal)
CPT/HCPCS: 36415; 80053; 80307; 83690; 83735; 85025; 96361; 96374; 99281; J2765; J7030

== ENCOUNTER 2025-07-13 11:45 | Emergency (ER) | payer MEDICAID, SELFPAY ==
[2025-07-13 12:41] VITALS: BP 107/73; PULSE 78; RESP 16; TEMP 36.9; O2SAT 99; BMI 32.4
--- NOTE | 2025-07-13 12:49 | EDNOTE_ITS ---
ED Skin Abcess FB-RME/HPI General Chief complaint: Skin/Abscess/Foreign Body Stated complaint: INGROWN HAIR ON PARHAM, FEELS IT'S INFECTED Time Seen by Provider: 07/13/25 12:20 Arrival date/time: 07/13/25 11:45 44-year-old male patient who is worried about possible sexually transmitted disease, patient told me that he is homeless, but not anymore however he got a text with somebody he met, and noticed burning-like sensation with urination, has been ongoing for the last few days. Patient denies any redness or abscesses or blistering in the genital area. However he also complained of ingrown hair on the left side of the face, feels infected, has been ongoing for the last 2 weeks, he is worried that he might contracted it from a garden. Patient denies any other complaints no fever. Is having unprotected sex according to him. Related Data Previous Rx's ?Medication ?Instructions ?Recorded metoclopramide HCl 10 mg tablet 10 mg PO Q6H PRN nause a and 05/06/25 (Reglan) vomiting #20 tabs cephalexin 500 mg capsule 500 mg PO QID 7 days #28 cap s 07/13/25 Allergies Allergy/AdvReac Type Severity Reaction Status Date / Time No Known Allergies Allergy Verified 07/13/25 11:49 Review of Systems Review of Systems Narrative Review of Systems: Review of system reviewed and within normal limits except mentioned in HPI ED Exam Narrative Physical exam: VITAL SIGNS: Reviewed. GENERAL APPEARANCE: Alert and interactive, follows commands, no acute distress, HEAD AND FACE: Non-traumatic. Throbbing noted with redness on the left side of the face ENT: PERRL, pink conjunctivitis, eyelid no trauma, Mucous membrane moist. NECK: Supple, nontender, no nuchal rigidity. CHEST: No tenderness, no crepitus, no paradoxical movement, no retractions. LUNGS: Clear, well ventilated, symmetric, no rales, no wheezing, no ronchi, no stridor, good breath sounds bilaterally. HEART: Regular rate, regular rhythm, no murmur, no gallops. ABDOMEN: Soft, positive bowel sounds, nondistended, no guarding, nontender, no rebound, no masses, RECTAL: Deferred. GENITAL: Deferred. NEUROLOGICAL: Gross motor function intact sensory function intact, Appropriate for age. MUSCULOSKELETAL: low back nontender, full range of motion. EXTREMITIES: Nontender, full range of motion. SKIN: Color pink, dry, no rash, no lacerations, no abrasions, no contusions. LYMPHATICS: Deferred. Course Quality Measures none Orders Category Date Time Status Chlamydia/GC/TV - PCR Stat Lab 07/13/25 13:16 Completed HIV (1&2) Antibody Rapid Stat Lab 07/13/25 13:29 Received UA, C/S IF [Urinalysis, C/S if Indicated] Stat Lab 07/13/25 13:16 Completed Urine Culture Stat Lab 07/13/25 13:16 Received Lidocaine 1% Vial 20 ml [Xylocaine 1% 20 ML] Med 07/13/25 14:17 Discontinued 2 ml INFL X1 ONE cefTRIAXone [Rocephin] 1,000 mg Med 07/13/25 14:17 Discontinued Lidocaine 1% Pf Vial 5ml [Xylocaine 1% Pf 5 ml] 2.1 ml IM X1 Vital Signs Vital signs: Vital Signs Temperature 98.4 F 07/13/25 12:41 Pulse Rate 78 07/13/25 12:41 Respiratory Rate 16 07/13/25 12:41 Blood Pressure 107/73 07/13/25 12:41 Pulse Oximetry (%) 99 07/13/25 12:41 Oxygen Delivery Method Room Air 07/13/25 12:41 Skin / Abscess / Foreign Body MDM Narrative MDM Narrative:: 44-year-old male patient who is worried about possible sexually transmitted disease, patient told me that he is homeless, but not anymore however he got a text with somebody he met, and noticed burning-like sensation with urination, has been ongoing for the last few days. Patient denies any redness or abscesses or blistering in the genital area. However he also complained of ingrown hair on the left side of the face, feels infected, has been ongoing for the last 2 weeks, he is worried that he might contracted it from a garden. Patient denies any other complaints no fever. Is having unprotected sex according to him. Patient is urinalysis positive for UTI patient tested negative for chlamydia and gonorrhea. Pending HIV results I told him to follow-up with PCP or call the emergency room for HIV results. He can also follow-up and get the results in medical records. Patient received traction IM Patient data External records reviewed:: None Clinical information provided by:: patient Social determinants that could affect healthcare access:: none Patient has the following chronic illnesses:: None How is presenting disease/condition affected by chronic disease/condition?: no chronic disease Evaluation data The following diagnostics were reviewed and interpreted by me:: lab results Lab and/or radiology exams considered but not ordered:: None Interpretation Summary: See above Medications / Prescriptions Medications or Prescriptions considered but not ordered:: None Medication administrations:: Medication Administration History Discontinued Medications Ceftriaxone Sodium 1,000 mg/ (Lidocaine HCl 2.1 ml) 0 mg IM X1 ONE Stop: 07/13/25 14:18 Last Admin: 07/13/25 15:42 Dose: 1,000 mg Documented By: Lidocaine HCl (Lidocaine Hcl 1% 20 Ml Vial) 2 ml INFL X1 ONE Stop: 07/13/25 14:18 Last Admin: 07/13/25 15:43 Dose: 2 ml Documented By: Ceftriaxone IM Consultations Consultation(s) initiated? (list below): No Diagnosis Skin/Abscess Differential Diagnosis: abscess of skin or subcutaneous tissue, cellulitis and other (Folliculitis, UTI) Most likely diagnosis given after review of the tests above:: Folliculitis, UTI Admission Indicated Admission indicated?: not indicated Admission Request Was there a request for admission?: No Disposition Plan Disposition Plan: Discharge Discharge Attestation Discharge Attestation: The patient was given an opportunity to ask questions and understood the discharge instructions. Discharge instructions specifically effects, indications for sooner follow up or return to the emergency department, and the expected course of current diagnosis. Patient condition: Stable Discharge Plan Plan Patient Disposition: HOME (Self Care) Discharge Disposition comment: stable Prescriptions/Referrals Prescriptions/Med Rec: New cephalexin 500 mg capsule 500 mg PO QID 7 Days Qty: 28 0RF No Action metoclopramide HCl [Reglan] 10 mg tablet 10 mg PO Q6H PRN (Reason: nausea and vomiting) Qty: 20 0RF Referrals: Isaac Brewster PA-C [Primary Care Provider] - In 1 week Problem List Clinical Impression: Folliculitis, UTI (urinary tract infection) Patient/Caregiver Discharge Instructions Discharge Activity: activity as tolerated Education Materials: ED Bladder Infection, Male (Adult) Additional Instructions: Thank you for the opportunity for serving you today. You are stable for discharged . You are advised to: Follow-up with your PCP in 1 to 2 days Return to ED for worsening of symptoms Increase oral fluids Take medication as prescribed Print Language: Moroccan Stand Alone Forms: Kathy Award Info., Patient Portal Info Letter ADRYAN/NAT Supervising Physician ADRYAN/NAT Supervising Physician: MD David
[2025-07-13 13:45] LABS: Collection Type, Urine Clean Catch
[2025-07-13 14:00] LABS: Bilirubin,Urine Negative (Negative); Blood,Urine Negative (Negative); Color,Urine Lt-Yellow (Lt Yel-Yel); Glucose, Urine Negative (Negative); Ketones,Urine Negative (Negative); Leukocyte Esterase,Urine Positive (Negative); Nitrite,Urine Negative (Negative); PH,Urine 6.5 (5.0-7.0); Protein,Urine Negative (Neg - Trace); RBC,Urine 6 /hpf (0-3); Specific Gravity,Urine 1.026 (1.001-1.035); Squamous Epithelial Cell,Urine 3 /hpf (0-5); Transitional Epi Cells,Urine < 1 /hpf (0-5); Urobilinogen,Urine Negative mg/dL (0.0-1.0); WBC,Urine 22 /hpf (0-5)
[2025-07-13 14:01] LABS: Clarity,Urine Hazy (Clear/Hazy); Culture Indicated,Urine Yes
[2025-07-13] MEDS: LIDOCAINE HCL 1% 20 ML VIAL INFL (15:43)
[2025-07-13 16:09] LABS: Chlamydia trachomatis PCR Negative (Not Detect); Neisseria Gonorrhoeae DNA PCR Negative (Not Detect); Trichomonas Negative (Negative)
[2025-07-13 16:48] VITALS: BP 110/82; PULSE 79; RESP 17; O2SAT 99
[2025-07-13 16:58] LABS: HIV (1&2) Antibody Rapid Non-Reactive
== END 2025-07-13 16:50 | disposition home or self-care (01) ==
PROVIDERS: Emergency Provider Nurse Practitioner Family
DX: L73.9 Follicular disorder, unspecified (principal); N39.0 Urinary tract infection, site not specified
CPT/HCPCS: 36415; 81001; 86703; 87086; 87491; 87591; 87661; 96372; 99283; J0696; J3490